=== PATIENT | female | born 1955 | race Caucasian/White ===

== ENCOUNTER → 2017-09-04 | Outpatient (CLI) | payer OTHER | LOC: ZCOL.LAB 14:06 | DX: H92.12 Otorrhea, left ear (principal) ==

== ENCOUNTER → 2018-08-24 | Outpatient (CLI) | payer MEDICARE, BC | LOC: MC.RAD 07:10 | DX: Z12.31 Encounter for screening mammogram for malignant neoplasm of breast (principal) ==

== ENCOUNTER 2018-10-22 07:55 | Day surgery (SDC) | payer MEDICARE, BC ==
[~2018-10-22] VITALS: Ht 162.6 cm; Wt 67.0 kg
[2018-10-22] MEDS ORDERED: ONE DAILY MULTI1 TA1 PO (08:08)
[2018-10-22] MEDS ORDERED: OSCAL 500 TAB500 MG PO (08:09)
[2018-10-22] MEDS ORDERED: OSTEO-BI-FLEX 21 TAB PO (08:09)
[2018-10-22] MEDS ORDERED: OCUVITE1 TA1 PO (08:09)
[2018-10-22 08:10] VITALS: BP 128/89; PULSE 79; TEMP 97.9
[2018-10-22 09:35] VITALS: BP 108/70; PULSE 96; TEMP 97.7
[2018-10-22 09:55] VITALS: BP 110/66; PULSE 62
[2018-10-22 10:10] VITALS: BP 123/70; PULSE 50
[2018-10-22 10:15] VITALS: BP 112/71; PULSE 52
[2018-10-22 13:22] VITALS: BP 96/54
--- NOTE | 2018-10-22 13:52 | NUR ---
PT RETURNED FROM ENDOSCOPY. WAS A/OX3. DENIES PAIN, NAUSEA, VOMITING. VSS. PT OFFERED FLUIDS, TOLERATING WELL. WILL CONT TO MONITOR
--- NOTE | 2018-10-22 13:58 | NUR ---
PT TOLERATING FOOD AND FLUIDS, DENIES PAIN, NAUSEA OR DISCOMFORT. A/OX3. IV DISCONTINUED AND TOLERATED WELL. DISCHARGE INSTRUCTIONS GIVEN, PT VOICES UNDERSTANDING. PT AMBULATED OUT OF FACILITY WITH SISTER BY HER SIDE, AND DC'D INTO FAMILY CAR.
== END 2018-10-22 10:41 | disposition home or self-care (01) ==
LOC: SDCO 07:55
DX: Z12.11 Encounter for screening for malignant neoplasm of colon (principal); Z83.71 Family history of colonic polyps; D50.9 Iron deficiency anemia, unspecified
CPT/HCPCS: J2250; J3010; J7030

== ENCOUNTER → 2019-09-12 | Outpatient (CLI) | payer MEDICARE, BC ==
[~2019-09-12] MED LIST: OCUVITE1 TA1 PO; ONE DAILY MULTI1 TA1 PO; OSCAL 500 TAB500 MG PO; OSTEO-BI-FLEX 21 TAB PO
== END ==
LOC: MC.RAD 08:00
DX: Z12.31 Encounter for screening mammogram for malignant neoplasm of breast (principal)

== ENCOUNTER → 2020-10-19 | Outpatient (CLI) | payer MEDICARE, BC | LOC: MC.RAD 07:45 | DX: Z12.31 Encounter for screening mammogram for malignant neoplasm of breast (principal); Z78.0 Asymptomatic menopausal state ==

== ENCOUNTER → 2021-10-28 | Outpatient (CLI) | payer MEDICARE, BC | LOC: MC.RAD 08:20 | DX: Z12.31 Encounter for screening mammogram for malignant neoplasm of breast (principal) ==

== ENCOUNTER → 2022-11-13 | Outpatient (CLI) | payer MEDICARE, BC | LOC: MC.RAD 11:10 | DX: Z12.31 Encounter for screening mammogram for malignant neoplasm of breast (principal) ==

== ENCOUNTER → 2023-11-16 | Outpatient (CLI) | payer MEDICARE, BC | LOC: MC.RAD 08:22 | DX: Z12.31 Encounter for screening mammogram for malignant neoplasm of breast (principal) ==